=== PATIENT | female | born 1980 | race Caucasian/White ===

== ENCOUNTER 2018-08-02 06:49 | Inpatient (IN) | payer OTHER ==
[2018-08-02] MEDS: LACTATED RINGER'S 1,000 ML IV ×2 (09:19→20:08)
[2018-08-02] MEDS: MAGNESIUM SULFATE 4 GM/100 ML 100 ML IV (09:21)
[2018-08-02] MEDS: PRENATAL VITAMIN PO (09:30)
[2018-08-02] MEDS ORDERED: ACETAMINOPHEN 325 MG TAB PO (09:30)
[2018-08-02] MEDS ORDERED: ONDANSETRON 4 MG INJ IV (09:30)
[2018-08-02] MEDS: MAGNESIUM SULFATE 20 GM/500 ML 500 ML IV ×2 (09:42→20:10)
[2018-08-02] MEDS ORDERED: ERYTHROMYCIN LACTOBIONATE 500 MG in SOD CHLORIDE 0.9% 100 ML IVPB (10:30)
[2018-08-02] MEDS: BETAMET NA PHOS/AC(6 MG/ML) 2 ML INJ SYG IM (11:54)
[2018-08-02] MEDS: BETAMET NA PHOS/AC(6 MG/ML) 5ML INJ IM (11:55)
[2018-08-02] MEDS: AMPICILLIN 2 GM/NS (PMX) 100 ML IV ×2 (12:28→18:38)
[2018-08-02] MEDS: AZITHROMYCIN 250 MG TAB PO (12:35)
[2018-08-02 12:47] LABS: MAGNESIUM 4.5 mg/dl (1.7-2.5)
[2018-08-02 18:47] LABS: MAGNESIUM 5.8 mg/dl (1.7-2.5)
[2018-08-03] MEDS: AMPICILLIN 2 GM/NS (PMX) 100 ML IV ×4 (00:07→18:24)
[2018-08-03 00:47] LABS: MAGNESIUM 5.8 mg/dl (1.7-2.5)
[2018-08-03] MEDS: LEVOTHYROXINE 25 MCG TAB PO (06:00)
[2018-08-03] MEDS: LACTATED RINGER'S 1,000 ML IV ×3 (06:00→23:28)
[2018-08-03] MEDS: MAGNESIUM SULFATE 20 GM/500 ML 500 ML IV ×2 (06:04→16:26)
[2018-08-03 07:32] LABS: MAGNESIUM 5.5 mg/dl (1.7-2.5)
[2018-08-03] MEDS: PRENATAL VITAMIN PO (08:54)
[2018-08-03] MEDS: BETAMET NA PHOS/AC(6 MG/ML) 5ML INJ IM (09:30)
[2018-08-03] MEDS: BETAMET NA PHOS/AC(6 MG/ML) 2 ML INJ SYG IM (12:27)
[2018-08-03 19:02] LABS: MAGNESIUM 6.1 mg/dl (1.7-2.5)
[2018-08-04] MEDS: AMPICILLIN 2 GM/NS (PMX) 100 ML IV ×4 (00:30→18:25)
[2018-08-04 02:27] LABS: MAGNESIUM 5.2 mg/dl (1.7-2.5)
[2018-08-04] MEDS: MAGNESIUM SULFATE 20 GM/500 ML 500 ML IV (03:13)
[2018-08-04] MEDS: LEVOTHYROXINE 25 MCG TAB PO (06:32)
[2018-08-04 09:52] LABS: MAGNESIUM 5.7 mg/dl (1.7-2.5)
[2018-08-04] MEDS: LACTATED RINGER'S 1,000 ML IV (15:50)
[2018-08-04] MEDS: PRENATAL VITAMIN PO (18:25)
[2018-08-04] MEDS: AZITHROMYCIN 500MG/NS (PMX) 250 ML IVPB (19:42)
[2018-08-04] MEDS: DOCUSATE SODIUM 100 MG CAP PO (22:43)
[2018-08-05] MEDS: AMPICILLIN 2 GM/NS (PMX) 100 ML IV ×2 (00:10→06:11)
[2018-08-05] MEDS: LEVOTHYROXINE 25 MCG TAB PO (06:11)
[2018-08-05] MEDS: LACTATED RINGER'S 1,000 ML IV (06:12)
[2018-08-05] MEDS ORDERED: OXYTOCIN 30 UNITS/LR 500 ML IV ×3 (07:18→10:30)
[2018-08-05] MEDS ORDERED: METHYLERGONOVINE 0.2 MG INJ IM ×2 (07:30→10:30)
[2018-08-05] MEDS ORDERED: MISOPROSTOL 200 MCG TAB PR ×2 (07:30→10:30)
[2018-08-05] MEDS ORDERED: LIDOCAINE 1% (MPF) 30 ML INJ INJ (07:30)
[2018-08-05] MEDS ORDERED: CARBOPROST 250 MCG INJ IM ×2 (07:30→10:30)
[2018-08-05] MEDS: OXYTOCIN 30 UNITS/LR 500 ML IV ×2 (07:48→08:04)
[2018-08-05] MEDS: LACTATED RINGER'S 1,000 ML IV* ×2 (10:14→18:14)
[2018-08-05] MEDS ORDERED: HYDROCODONE/APAP (5/325) TAB PO ×2 (10:30)
[2018-08-05] MEDS ORDERED: ZOLPIDEM 5 MG TAB PO (10:30)
[2018-08-05 10:43] LABS: ADD MAN DIFF? NO
[2018-08-05 10:58] LABS: WHITE BLOOD COUNT 18.3 10^3/ul (4.8-10.8)
[2018-08-05 10:58] LABS: BASOPHIL # 0.1 10^3/ul (0.0-0.1); BASOPHILS % 0.3 % (0.0-2.0); EOSINOPHILS % 0.1 % (0.0-7.0); HEMATOCRIT 34.9 % (37.0-47.0); HEMOGLOBIN 11.5 g/dl (12.0-16.0); LYMPHOCYTES # 2.3 10^3/ul (0.8-2.9); LYMPHOCYTES % 12.5 % (15.0-51.0); MEAN CORPUSCULAR HEMOGLOBIN 30.2 pg (29.0-33.0); MEAN CORPUSCULAR VOLUME 91.6 fl (82.0-101.0); MEAN PLATELET VOLUME 11.7 fl (7.4-10.4); MONOCYTE # 0.8 10^3/ul (0.3-0.9); MONOCYTES % 4.4 % (0.0-11.0); PLATELET COUNT 254 10^3/UL (140-415); RED BLOOD COUNT 3.81 10^6/ul (4.20-5.40); RED CELL DISTRIBUTION WIDTH 14.9 % (11.5-14.5)
[2018-08-05 11:11] LABS: INR 0.94; PROTIME 12.7 Sec (11.9-14.9)
[2018-08-05 11:12] LABS: PARTIAL THROMBOPLASTIN TIME 22.6 Sec (23.0-35.0)
[2018-08-05] MEDS: LANOLIN 7 GM TUBE TOP (11:58)
[2018-08-05] MEDS: IBUPROFEN 600 MG TAB PO ×3 (11:58→23:52)
[2018-08-05] MEDS: WITCH HAZEL/GLYCERIN PAD PR (11:58)
[2018-08-05] MEDS: BENZOCAINE 20% 56 ML SPRAY TOP (11:59)
[2018-08-05] MEDS: DIBUCAINE 1% 30 GM OINT TOP (11:59)
[2018-08-05 12:02] LABS: HEPATITIS B SURFACE ANTIGEN NEGATIVE (NEGATIVE)
[2018-08-05] MEDS: MAGNESIUM HYDROXIDE 30ML CUP PO (20:48)
[2018-08-05] MEDS: SENNA/DOCUSATE NA (8.6MG/50MG) TAB PO (20:48)
[2018-08-06] MEDS: IBUPROFEN 600 MG TAB PO ×3 (05:36→17:14)
[2018-08-06 08:56] LABS: ADD MAN DIFF? NO
[2018-08-06] MEDS: SENNA/DOCUSATE NA (8.6MG/50MG) TAB PO ×2 (09:00→21:00)
[2018-08-06] MEDS: MAGNESIUM HYDROXIDE 30ML CUP PO ×2 (09:00→21:00)
[2018-08-06 09:05] LABS: WHITE BLOOD COUNT 13.5 10^3/ul (4.8-10.8)
[2018-08-06 09:05] LABS: BASOPHIL # 0.1 10^3/ul (0.0-0.1); BASOPHILS % 0.5 % (0.0-2.0); EOSINOPHILS # 0.1 10^3/ul (0.0-0.5); EOSINOPHILS % 0.4 % (0.0-7.0); LYMPHOCYTES # 3.7 10^3/ul (0.8-2.9); LYMPHOCYTES % 27.4 % (15.0-51.0); MEAN CORPUSCULAR HEMOGLOBIN 30.2 pg (29.0-33.0); MEAN CORPUSCULAR HGB CONC 33.3 g/dl (32.0-37.0); MEAN CORPUSCULAR VOLUME 90.7 fl (82.0-101.0); MEAN PLATELET VOLUME 11.6 fl (7.4-10.4); MONOCYTE # 0.8 10^3/ul (0.3-0.9); MONOCYTES % 5.9 % (0.0-11.0); NEUTROPHIL # 8.7 10^3/ul (1.6-7.5); NEUTROPHILS % 64.7 % (39.0-77.0); PLATELET COUNT 234 10^3/UL (140-415); RED BLOOD COUNT 3.64 10^6/ul (4.20-5.40); RED CELL DISTRIBUTION WIDTH 14.6 % (11.5-14.5)
[2018-08-06] MEDS: LEVOTHYROXINE 25 MCG TAB GTB (12:34)
[2018-08-06 15:16] LABS: RAPID PLASMA REAGIN NONREACTIVE (NR)
[2018-08-07] MEDS: IBUPROFEN 600 MG TAB PO ×3 (00:41→11:50)
[2018-08-07] MEDS: LEVOTHYROXINE 25 MCG TAB GTB (05:50)
[2018-08-07] MEDS: DIPHTH/TET/ACEL PERTUSS (ADULT) 0.5 ML VIAL IM* (07:51)
[2018-08-07] MEDS: MEASLES,MUMPS,RUBELLA VACCINE INJ SC* (07:52)
[2018-08-07] MEDS: VARICELLA VACCINE LIVE/PF 1,350 UNIT/0.5 ML ML SC* (07:52)
[2018-08-07] MEDS: MAGNESIUM HYDROXIDE 30ML CUP PO (09:00)
[2018-08-07] MEDS: SENNA/DOCUSATE NA (8.6MG/50MG) TAB PO (09:00)
== END 2018-08-07 15:21 | disposition home or self-care (01) | DRG 807 ==
LOC: OBT 06:49 → PP1 08-03 10:17 → L-D 08-05 03:49 → OBT 07:54 → L-D 08-05 07:18 → PP1 08-05 10:02 → L-D 09:05
PROVIDERS: Obstetrics & Gynecology
PROC: 10E0XZZ Delivery of Products of Conception, External Approach (ICD-10-PCS; principal; 2018-08-05)
PROC: 0HQ9XZZ Repair Perineum Skin, External Approach (ICD-10-PCS; 2018-08-05)
DX: O60.14X0 Preterm labor third trimester with preterm delivery third trimester, not applicable or unspecified (principal); Z37.0 Single live birth; O70.0 First degree perineal laceration during delivery; Z3A.33 33 weeks gestation of pregnancy
CPT/HCPCS: 76815; 83735; 85025; 85610; 85730; 86592; 86850; 86900; 86901; 87070; 87340; 88307; 90715; 90716; 99464